=== PATIENT | male | born 1980 | race Caucasian/White ===

== ENCOUNTER 2021-11-27 12:39 | Day surgery (SDC) | payer OTHER, SELFPAY ==
--- NOTE | 2021-11-24 12:22 | P.CONAN_ITS ---
Documented by User: Laquita Tobin NP 11/24/21 12:23 HPI - Anesthesia Eval Consult details Narrative: 41yo M for Upper Endoscopy [facility] Past Medical History Medical History (Updated 11/24/21 @ 07:20 by Shana Madrid RN) GERD (gastroesophageal reflux disease) Surgical History Surgical History (Updated 11/24/21 @ 07:21 by Shana Madrid RN) Hx of cholecystectomy Social History Social History Advance Directives: No Advance Directives Information Provided: Yes Meds Allergies Allergy/AdvReac Type Severity Reaction Status Date / Time No Known Allergies Allergy Verified 11/24/21 07:20 Home Medications Medication Instructions Recorded Confirmed Last Taken Type naproxen sodium 220 mg capsule 220 mg PO QID PRN Pain 11/24/21 11/24/21 Unknown History (Aleve) omeprazole 20 mg capsule,delayed 20 mg PO DAILY 11/24/21 11/24/21 Unknown History release Exam Exam Date and Time: November 24, 2021 1222 Assessment and Plan Assessment Anesthesia Assessment: Chart Reviewed Documented by User: Colleen Mcclelland MD 11/27/21 13:08 [facility] Past Medical History Medical History (Updated 11/24/21 @ 07:20 by Shana Madrid RN) GERD (gastroesophageal reflux disease) Family History Family history of problems with anesthesia: No Surgical History Surgical History (Updated 11/24/21 @ 07:21 by Shana Madrid RN) Hx of cholecystectomy History of Problems with Anesthesia: No Social History Social History Advance Directives: No Advance Directives Information Provided: Yes Meds Allergies Allergy/AdvReac Type Severity Reaction Status Date / Time No Known Allergies Allergy Verified 11/24/21 07:20 Home Medications Medication Instructions Recorded Confirmed Last Taken Type naproxen sodium 220 mg capsule 220 mg PO QID PRN Pain 11/24/21 11/24/21 Unknown History (Aleve) omeprazole 20 mg capsule,delayed 20 mg PO DAILY 11/24/21 11/24/21 Unknown History release Exam Airway Mallampati Class: II TM Dist: >3cm Neck ROM: Full Assessment and Plan Assessment Anesthesia Assessment: Anesthesia Plan Discussed Final Anesthetic Review Family History of Problems with Anesthesia: No History of Problems with Anesthesia: No NPO: Yes ASA Class: II Final Preanesthetic Review: No Changes in Pt Med Stat, Meds/Allgs Chart Reviewed, Consent Obtained/Reviewed and Anes Risks/Benef Reviewed Patient Risk: Low Procedure Risk: Low Anesthetic Plan Anesthetic Plan: MAC: Disposition: Standard PACU
[2021-11-27] MEDS: Lactated Ringers 1,000 ML 100 ML IVCONT (13:12)
[2021-11-27 13:14] VITALS: BMI 36.3
[2021-11-27 13:16] VITALS: BP 123/75; PULSE 70; RESP 18; TEMP 36.7; O2SAT 98
[2021-11-27 14:19] VITALS: BP 113/72; PULSE 83; RESP 16; TEMP 36.9; O2SAT 97
--- NOTE | 2021-11-27 14:30 | P.BOP_ITS ---
Brief Operative Note Date of Service: 11/27/21 Pre-op diagnosis: GERD Post-op diagnosis: other (Same, small hiatal hernia) Procedure: EGD with biopsies Surgeon: Ferdinand Aabrca Anesthesia: MAC Was an Registered Client Associate used for this Procedure?: No Estimated blood loss (mL): 2.0 Pathology: other (A. EG Junction at 37 cm) Condition: stable Disposition: PACU
[2021-11-27 14:34] VITALS: BP 112/72; PULSE 79; RESP 16; O2SAT 98
[2021-11-27 14:49] VITALS: BP 117/77; PULSE 64; RESP 16; TEMP 36.9; O2SAT 98
--- NOTE | 2021-11-28 01:52 | OP_ITS ---
SURGEON: Ferdinand Abarca MD INDICATIONS: This patient presents for evaluation of chronic gastroesophageal reflux. Full consent has been obtained from him for this, including risks of bleeding and perforation. PREOPERATIVE DIAGNOSIS: Chronic gastroesophageal reflux. POSTOPERATIVE DIAGNOSIS: PROCEDURE PERFORMED: Esophagogastroduodenoscopy with biopsies. ESTIMATED BLOOD LOSS: COMPLICATIONS: ANESTHESIA: ASSISTANTS: SPECIMENS: POSTOPERATIVE DIAGNOSES: Chronic gastroesophageal reflux, small hiatal hernia. PREOPERATIVE MEDICATION USED: Monitored anesthesia care. DESCRIPTION OF PROCEDURE: The patient was placed in the left lateral decubitus position. The Olympus video gastroscope was passed in the posterior oropharynx and upper esophagus under direct vision. The scope was passed slowly to the distal esophagus. The gastroesophageal junction appeared at 37 cm. There was a very minimal irregularity, but no evidence of esophagitis nor any evidence of Sullivan mucosa. The scope was entered into the stomach and there was a small hiatal hernia. The scope was advanced to the pylorus and duodenum was cannulated to the descending portion. The duodenum including the bulb appeared normal without mass or ulceration. The scope was withdrawn back into the stomach. The gastric antrum and body appeared normal with good peristalsis. The scope was retroflexed visualizing the proximal stomach carefully which appeared normal, without any sign of mass or ulceration. Scope was straightened and withdrawn back to the esophagus. Biopsies were obtained at the EG junction at 37 cm. Proximal to this, the esophageal mucosa appeared normal. The scope was withdrawn from the patient. He tolerated the procedure well and he was returned to recovery area in stable condition. IMPRESSION: Small hiatal hernia, gastroesophageal reflux. PLAN: The patient reports that since being switched from omeprazole 20 mg to omeprazole 40 mg, he has been feeling much better. As such, I did advise him to continue this either daily or as needed and to see me in the fall for a followup visit. MD ALBERTO Turner/SHA / [id number]
== END 2021-11-27 15:21 | disposition home or self-care (01) ==
PROVIDERS: PCP Internal Medicine; Visit Provider Internal Medicine
PROC: 0DJ08ZZ Inspection of Upper Intestinal Tract, Via Natural or Artificial Opening Endoscopic (ICD-10-PCS; CPT 43235; principal; 2021-11-27 13:30)
DX: K21.9 Gastro-esophageal reflux disease without esophagitis (principal); K44.9 Diaphragmatic hernia without obstruction or gangrene; Z79.899 Other long term (current) drug therapy; Z90.49 Acquired absence of other specified parts of digestive tract
CPT/HCPCS: 43239; 88305

== ENCOUNTER 2022-02-23 08:43 | Outpatient (REF) | payer OTHER, SELFPAY ==
--- NOTE | ~2022-02-23 | US_ITS ---
EXAMINATION: US ABDOMEN COMPLETE CLINICAL INFORMATION: Abdominal discomfort. COMPARISON: None TECHNIQUE: Real-time imaging of the abdominal viscera. Technically limited study secondary to body habitus. FINDINGS: PANCREAS: Not well visualized due to shadowing from overlying bowel gas. ABDOMINAL AORTA: The proximal, mid, and distal segments are normal in caliber. INFERIOR VENA CAVA: Visualized portions are normal. LIVER: The liver is normal in size. The liver contour is normal. Increased echogenicity. No focal hepatic lesion. There is no intrahepatic biliary duct dilatation seen. GALLBLADDER: Normal. The gallbladder is physiologically distended without evidence of stones, sludge, polyps, wall thickening or pericholecystic fluid. COMMON BILE DUCT: Normal in caliber measuring 0.2 cm in diameter. RIGHT KIDNEY: Normal. No hydronephrosis. No renal calculi or focal parenchymal lesions. The kidney measures 11.0 cm in maximum dimension. LEFT KIDNEY: Normal. No hydronephrosis. No renal calculi or focal parenchymal lesions. The kidney measures 10.9 cm in maximum dimension. SPLEEN: Normal. The spleen measures 11.1 cm in maximum dimension. FREE FLUID: None. US/US abdomen complete IMPRESSION: 1. Limited examination due to patient body habitus and shadowing from overlying bowel gas. 2. Increased echogenicity of the liver is nonspecific and could be seen in the setting of hepatic steatosis or hepatocellular disease. Correlation with liver function tests is recommended. 3. Suboptimal evaluation of the pancreas. If deemed appropriate, correlation with cross-sectional imaging could be obtained.
[2022-02-23 10:44] LABS: Alanine Aminotransferase 26 U/L (0-40); Albumin Level 4.4 g/dL (3.5-5.0); Alkaline Phosphatase 121 U/L (39-117); Aspartate Amino Transferase 27 U/L (5-37); Bilirubin Direct 0.2 mg/dL (0.0-0.5); Bilirubin Total 0.7 mg/dL (0.0-1.0); Total Protein 7.3 g/dL (6.5-8.0)
== END 2022-02-23 08:44 | disposition home or self-care (01) ==
LOC: HO.US 08:43
PROVIDERS: Absent Provider Internal Medicine; PCP Internal Medicine; Visit Provider Internal Medicine
DX: R10.9 Unspecified abdominal pain (principal); R74.01 Elevation of levels of liver transaminase levels
CPT/HCPCS: 36415; 76700; 80076

== ENCOUNTER → 2024-01-02 10:07 | Outpatient (BNVA) | payer SELFPAY | PROVIDERS: PCP Internal Medicine; Visit Provider Physician Assistant | DX: Z02.79 Encounter for issue of other medical certificate (principal) ==

== ENCOUNTER 2024-03-16 08:32 | Outpatient (REF) | payer OTHER, SELFPAY ==
[2024-03-16 09:42] LABS: Albumin Level 4.3 g/dL (3.5-5.0); Alkaline Phosphatase 86 U/L (39-117); Anion Gap 10 (12-20); Aspartate Amino Transferase 35 U/L (5-37); Bilirubin Total 0.5 mg/dL (0.0-1.0); Blood Urea Nitrogen 22 mg/dL (9-16); Calcium 9.6 mg/dL (8.4-10.2); Carbon Dioxide 27 mmol/L (22-29); Chloride 106 mmol/L (96-108); Cholesterol 173 mg/dL (<200); Estimated Glomerular Filt Rate > 60; Glucose Random 112 mg/dL (60-115); HDL Cholesterol 39 mg/dL (>40); LDL Cholesterol Calculated 121 mg/dL (<100); Potassium 4.4 mmol/L (3.3-5.1); Sodium 139 mmol/L (135-145); Total Protein 7.1 g/dL (6.5-8.0); Triglycerides 66 mg/dL (<150)
[2024-03-16 09:51] LABS: Alanine Aminotransferase 33 U/L (0-40)
== END 2024-03-16 08:33 | disposition home or self-care (01) ==
LOC: HO.LAB 08:32
PROVIDERS: PCP Internal Medicine; Visit Provider Internal Medicine
DX: Z00.00 Encounter for general adult medical examination without abnormal findings (principal); E78.00 Pure hypercholesterolemia, unspecified; F10.11 Alcohol abuse, in remission; R73.01 Impaired fasting glucose
CPT/HCPCS: 36415; 80053; 80061